=== PATIENT | male | born 1995 | race Caucasian/White ===

== ENCOUNTER → 2017-02-26 | Outpatient (CLI) | payer BC, OTHER ==
--- NOTE | 2017-02-26 11:28 | DIAGNOSTIC IMAGING REPORT ---
PELVIS 1 OR 2 VIEWS CLINICAL HISTORY: 21 years-old Male presenting with RIGHT GROIN PAIN. TECHNIQUE: Single frontal view of the pelvis was obtained. COMPARISON: None. FINDINGS: No acute fracture or malalignment. Hip joints congruent. Sacroiliac joints normal. Slight irregularity along the inferior aspect of the right pubic bone at the symphysis pubis. IMPRESSION: Subtle irregularity along the inferior aspect of the right pubic bone at the symphysis pubis. This could indicate early osteitis pubis or represent normal variation. Correlate for symptoms of athletic pubalgia. Electronically signed by: Warner Flores M.D. 02/26/2017 11:27 AM Dictated Date/Time: 02/26/2017 11:24 AM
== END | disposition home or self-care (01) ==
LOC: C.RDSM 11:01
PROVIDERS: ATTEND Internal Medicine
DX: R10.30 Lower abdominal pain, unspecified (principal)